=== PATIENT | male | born 1995 | race Caucasian/White ===

== ENCOUNTER 2023-04-21 17:52 | Emergency (ER) | payer OTHER, SELFPAY ==
[2023-04-21] VITALS (8 sets, daily range): BP systolic 140–155; BP diastolic 89–113; PULSE 67–87; RESP 14–20; TEMP 36.7–37.2; O2SAT 95–98; BMI 27.3
--- NOTE | 2023-04-21 18:47 | PC.NURSE ---
Dr. Martínez at [facility] for pt eval
--- NOTE | 2023-04-21 18:52 | XR_ITS ---
PROCEDURE INFORMATION: Exam: XR Chest Exam date and time: 04/21/2023 6:52 PM Age: 27 years old Clinical indication: Pain; Chest pressure TECHNIQUE: Imaging protocol: Radiologic exam of the chest. Views: 1 view. COMPARISON: No relevant prior studies available. FINDINGS: Lungs: No consolidation. Pleural spaces: No pleural effusion. No pneumothorax. Heart/Mediastinum: No cardiomegaly. Bones/joints: Unremarkable. IMPRESSION: No acute pulmonary findings.
--- NOTE | 2023-04-21 18:52 | ECG_ITS ---
APPROVED REPORT Exam: Resting ECG HR:65 bpm ECG Measurements Heart Rate 65 AXES MI 132 P 9 QRSd 88 QRS 78 QT 367 T 25 QTc 378 Conclusion SINUS RHYTHM Electronically signed by : SILVIA BAUMAN, 04/21/2023 22:03:01
[2023-04-21] MEDS: hydrOXYzine pamoate 25MG CAPSULE 25 MG PO (18:58)
[2023-04-21 19:29] LABS: Basophils # 0.2 K/mm3 (0-0.2); Basophils % 1.6 % (0.1-2.0); Eosinophils # 0.2 K/mm3 (0.0-0.4); Eosinophils % 1.9 % (0.1-12.0); Hematocrit 52.6 % (42.0-52.0); Hemoglobin 17.1 g/dL (14.1-18.0); Lymphocytes # 3.1 K/mm3 (0.7-4.5); Lymphocytes % 30.1 % (10-50); Mean Corpuscular HGB Conc 32.5 g/dL (31.8-35.4); Mean Corpuscular Hemoglobin 31.7 pg (27.0-31.2); Mean Corpuscular Volume 97.6 fl (80-94); Mean Platelet Volume 10.1 fl (7.4-10.4); Monocytes # 0.8 K/mm3 (0.1-1.0); Monocytes % 7.9 % (1.7-9.3); Neutrophils % 58.5 % (37.0-80.0); Platelet Count 241 K/mm3 (142-424); Red Blood Count 5.39 M/mm3 (4.60-6.20); Red Cell Distribution Width 12.9 % (11.5-17.5); White Blood Count 10.3 K/mm3 (4.8-10.8)
[2023-04-21 19:34] LABS: Alanine Aminotransferase 51 U/L (12-78); Albumin Level 4.5 g/dl (3.5-5.0); Albumin/Globulin Ratio 1.4 (1.1-1.8); Alkaline Phosphatase 82 U/L (38-126); Anion Gap 10.9 mEq/L (5-15); Aspartate Amino Transferase 43 U/L (17-59); Bilirubin,Total 0.7 mg/dl (0.2-1.3); Blood Urea Nitrogen 13 mg/dl (9-20); Calcium 9.1 mg/dl (8.4-10.2); Carbon Dioxide 26 mmol/L (22.0-30.0); Chloride 107 mmol/L (98-107); Creatinine Clearance Estimated 138 mL/min (50-200); Estimated Glomerular Filt Rate 101 ml/min (>60); GFR (African American) 122 ML/MIN (>60); Globulin 3.2 g/dL (1.3-3.2); Glucose 84 mg/dl (74-100); Potassium 3.9 mmoL/L (3.5-5.1); Sodium 140 mmol/L (136-145); Total Protein,Serum 7.7 g/dl (6.3-8.2)
[2023-04-21 19:35] LABS: INR 1.01 (0.9-1.1); Magnesium 2.3 mg/dl (1.6-2.3); Prothrombin Time 10.9 seconds (10.1-12.5)
--- NOTE | 2023-04-21 19:37 | [facility].EDGENADL ---
Discharge Plan Disposition Patient Disposition: Home, Self-Care Prescriptions Prescriptions: New hydroxyzine pamoate [Vistaril] 25 mg capsule 25 mg PO Q6H PRN (Reason: anxiety) Qty: 30 0RF Referrals Follow up/Referrals: Provider,Referral, [Primary Care Provider] - See instructions Activity Restrictions/Add. Instructions Additional Instructions/Restrictions: Vistaril every 6 hours as needed for anxiety. Family doctor about further anxiety medications. There are some that have less side effects than the ones you were started on previously. Call your family doctor to establish care for this visit to the emergency department and schedule follow-up within 48 hours to ensure improvement. If you have any worsening of your condition or any other concerning signs or symptoms, return to the emergency department or your primary care doctor for further evaluation. Clinical Impressions Clinical Impression: Anxiety Discharge ED Provider: [facility] General Adult HPI General Chief complaint: Recheck/Abnormal Lab/Rx Stated complaint: tongue is numb, blood feels thick,feeling off Time Seen by Provider: 04/21/23 18:00 Mode of Arrival: Ambulatory Source of Information: Patient Limitations: No Limitations Description of Symptoms (Recalled from ER Triage Doc. by RN): pt presents to [facility] with c/o feeling off . pt reports symptoms intermittent for the past week. pt reports the tip of his tongue goes numb. at times his arms go numb but does not last long. pt is a [facility]. pt is concerned that his blood is to thick . NIH 0 History of Present Illness HPI narrative: 27-year-old male with history of anxiety presenting with multiple complaints. Patient states that starting on Sunday, 5 days prior to this visit, his tongue started feeling numb after drinking so. Since then, he starts noticing that he was generally achy. 1 day prior to this visit, patient states that my blood started running thicker than usual, but was unable to explain exactly what that meant. States that he feels that his bilateral upper extremities are full and it radiates into his chest. No pain, shortness of breath, or any acute complaints otherwise. Related Data Previous Rx's Medication Instructions Recorded hydroxyzine pamoate 25 mg capsule 25 mg PO Q6H PRN anxiety #30 caps 04/21/23 (Vistaril) Allergies Allergy/AdvReac Type Severity Reaction Status Date / Time No Known Allergies Allergy Verified 04/21/23 18:55 PFSH PFSH Disclaimer: The information contained in this section may have been updated after the patient was seen, as this information can be updated by other users. Social History Smoking Status: Never smoker alcohol intake: never current occupational status: employed Travel in the last 8 weeks: None ROS Obtained: Yes All systems reviewed & no additional complaints except as documented Physical Exam General General appearance: alert, in no apparent distress and anxious Head Head exam: atraumatic and normocephalic Eye Eye exam: Present normal appearance, PERRL and EOMI ENT ENT exam: Present mucous membranes moist Neck Neck exam: Present normal inspection, full ROM and trachea midline Respiratory Respiratory exam: Present normal lung sounds bilaterally; Absent respiratory distress, wheezes, stridor, accessory muscle use or prolonged expiratory phase Cardiovascular Cardiovascular exam: Present regular rate and normal rhythm Abdominal Exam Abdominal exam: Present soft; Absent distention, tenderness, guarding, rebound or rigidity Extremities Exam Extremities exam: Absent edema Neurological Exam Neurological exam: Present alert, oriented X3, CN II-XII intact, normal gait and other (NIHSS 0); Absent motor sensory deficit Skin Skin exam: Present warm and dry; Absent diaphoresis or erythema Medical Decision Making Medical Records Medical records reviewed: Yes I reviewed the patient's medical records. Romero Inquiry Pt receiving controlled substance: No Romero was queried for this patient: No Vital Signs: 04/21/23 17:55 04/21/23 18:18 04/21/23 18:30 Temperature 98.9 F Temperature Source Oral Pulse Rate 73 Pulse Rate [Left Radial] 74 Respiratory Rate 14 Blood Pressure 143/101 H Blood Pressure [Right Arm] 140/89 149/107 H Blood Pressure Mean Blood Pressure Mean [Right Arm] 106 121 02 Sat by Pulse Oximetry 98 98 Oxygen Delivery Method Room Air 04/21/23 19:00 04/21/23 19:30 04/21/23 20:00 Temperature Temperature Source Pulse Rate 87 82 79 Pulse Rate [Left Radial] Respiratory Rate 18 20 18 Blood Pressure 148/101 H 144/100 H 145/97 H Blood Pressure [Right Arm] Blood Pressure Mean 109 111 103 Blood Pressure Mean [Right Arm] 02 Sat by Pulse Oximetry 97 96 98 Oxygen Delivery Method Room Air Room Air Room Air 04/21/23 20:30 Temperature Temperature Source Pulse Rate 73 Pulse Rate [Left Radial] Respiratory Rate 18 Blood Pressure 155/113 H Blood Pressure [Right Arm] Blood Pressure Mean 122 Blood Pressure Mean [Right Arm] 02 Sat by Pulse Oximetry 95 Oxygen Delivery Method Room Air Lab Data Lab Results 04/21/23 18:06: WBC 10.3, RBC 5.39, Hgb 17.1, Hct 52.6 H, MCV 97.6 H, MCH 31.7 H, MCHC 32.5, RDW 12.9, Plt Count 241, MPV 10.1, Neut % (Auto) 58.5, Lymph % (Auto) 30.1, [place] % (Auto) 7.9, Eos % (Auto) 1.9, Baso % (Auto) 1.6, Neut # (Auto) 6.0, Lymph # (Auto) 3.1, [place] # (Auto) 0.8, Eos # (Auto) 0.2, Baso # (Auto) 0.2, PT 10.9, INR 1.01, Sodium 140, Potassium 3.9, Chloride 107, Carbon Dioxide 26, Anion Gap 10.9, BUN 13, Creatinine 0.90, Estimated Creat Clear 138, Estimated GFR 101, Est GFR ( Amer) 122, Glucose 84, Calcium 9.1, Magnesium 2.3, Total Bilirubin 0.7, AST 43, ALT 51, Alkaline Phosphatase 82, Troponin I < 0.01, Total Protein 7.7, Albumin 4.5, Globulin 3.2, Albumin/Globulin Ratio 1.4 04/21/23 18:06 04/21/23 18:06 Orders (Tests/Meds): ED MEDICATIONS Discontinued Medications Generic Name Dose Route Start Last Admin Trade Name Freq PRN Reason Stop Dose Admin Hydroxyzine Pamoate 25 mg 04/21/23 18:53 04/21/23 18:58 Hydroxyzine Pamoate 25mg Capsule PO 04/21/23 18:54 25 mg ONCE ONE Administration ORDERS Category Date Time Status CXR --portable [XR chest portable] Stat Exams 04/21/23 18:52 Completed CBC w/Auto Diff [Complete Blood Count Auto Diff] Stat Lab 04/21/23 18:06 Completed CMP [Comprehensive Metabolic Panel] Stat Lab 04/21/23 18:06 Completed Magnesium Stat Lab 04/21/23 18:06 Completed PT INR [Prothrombin Time INR] Stat Lab 04/21/23 18:06 Completed Trop I [Troponin I] Stat Lab 04/21/23 18:06 Completed Troponin I Q3H Lab 04/21/23 22:00 Ordered Troponin I Q3H Lab 04/22/23 01:00 Ordered ECG initial Besson Routine Y 04/21/23 18:52 Completed Medical Decision Narrative: 27-year-old male with history of anxiety presenting with multiple complaints. Patient states that starting on Sunday, 5 days prior to this visit, his tongue started feeling numb after drinking so. Since then, he starts noticing that he was generally achy. 1 day prior to this visit, patient states that my blood started running thicker than usual, but was unable to explain exactly what that meant. States that he feels that his bilateral upper extremities are full and it radiates into his chest. No pain, shortness of breath, or any acute complaints otherwise. History was obtained via conversation with patient. On arrival, patient hemodynamically stable, alert, oriented x4, appropriate, GCS 15, moving all extremities spontaneously, pupils equal and reactive to light. Full physical exam performed and significant for well-appearing male in no acute distress. He is anxious appearing and making very little eye contact. Hypertensive, nontachycardic. Satting appropriately on room air, afebrile. Neurologically intact. Differential includes anxiety, hyperviscosity, dehydration, ACS, illness anxiety disorder, among others. Patient was given hydroxyzine 25 mg for symptomatic management and correction of underlying abnormalities. Workup independently interpreted and significant for nonactionable CBC or chemistry, magnesium negative, coags normal. Troponin negative. Chest x-ray without acute cardiopulmonary airspace disease. See radiology read for full review of final results. Independent interpretation of EKG shows sinus rhythm 65 beats a minute no ST or T wave changes concerning for acute ischemia. ID, QRS, QT intervals within normal limits. Heart score 0. On reevaluation, patient resting comfortably bed Given patient presentation, workup, history, this most likely represents anxiety. Because patient at baseline without signs or symptoms of clinical decompensation, deemed appropriate for discharge. Results were relayed to patient who voiced understanding and were agreeable to outpatient management and follow up. At the time of discharge the patient was hemodynamically stable, tolerating PO, and mobilizing appropriately. Critical Care Critical Care Time Critical Care Time: No
[2023-04-21 20:07] LABS: Troponin I < 0.01 ng/ml (0.00-0.034)
== END 2023-04-21 20:42 | disposition home or self-care (01) ==
PROVIDERS: Emergency Provider Emergency Medicine
DX: F41.9 Anxiety disorder, unspecified (principal); R20.0 Anesthesia of skin; R03.0 Elevated blood-pressure reading, without diagnosis of hypertension
CPT/HCPCS: 71045; 80053; 83735; 84484; 85025; 85610; 93005; 99285